=== PATIENT | male | born 1955 | race Caucasian/White ===

== ENCOUNTER 2016-10-05 08:00 | Outpatient (RCR) | payer BC ==
[~2016-10-05 08:00] MED LIST: ASPIRIN 32325 MG/TAB PO; ATENOLOL; TRICOR200 MG PO; XANAX1 MG PO
== END 2016-11-30 | disposition home or self-care (01) ==
LOC: MKS.ESL.PT
DX: M25.512 Pain in left shoulder (principal); M79.1 Myalgia

== ENCOUNTER 2017-03-10 07:56 | Outpatient (RCR) | payer BC | END 2017-03-17 15:47 | LOC: MKS.ESL.PT 07:56 | DX: Z01.818 Encounter for other preprocedural examination (principal); M25.812 Other specified joint disorders, left shoulder ==

== ENCOUNTER 2017-04-27 08:15 | Outpatient (RCR) | payer BC | END 2017-04-28 08:47 | LOC: MKS.ESL.PT 08:15 | DX: M75.22 Bicipital tendinitis, left shoulder (principal) ==

== ENCOUNTER → 2022-05-04 | Outpatient (CLI) | payer BC | LOC: COL.RAD 08:31 | DX: K76.9 Liver disease, unspecified (principal) | CPT/HCPCS: A9575 ==